=== PATIENT | female | born 1945 | race Caucasian/White ===

== ENCOUNTER 2019-09-01 02:50 | Emergency (ER) | payer MEDICARE, BC ==
[~2019-09-01] VITALS: Ht 157.5 cm; Wt 87.3 kg
[~2019-09-01 02:50] MED LIST: ATIVAN0.5 MG PO; CLARITIN 10 MG10 MG PO; HYDROCHLOROTH12.5 M1 PO; HYDROCODONE-APA1 TAB PO; LIVALO2 MG PO; MILK OF MAGNESI30 ML PO; MIRALAX17 GM PO; MIRAPEX1 MG PO; PRILOSEC20 MG PO; SYNTHROID88 MCG PO; TRILEPTAL150 MG PO; TYLENOL PM1 TAB PO
[2019-09-01 02:55] VITALS: Ht 157.5 cm; Wt 87.3 kg
[2019-09-01] MEDS ORDERED: CETIRIZINE HCL5 MG PO (02:57)
[2019-09-01] MEDS ORDERED: CRESTOR5 MG PO (02:57)
[2019-09-01 03:30] LABS: BASOPHILS 0.6 % (0-2); EOSINOPHILS 3.6 % (0-7); HEMATOCRIT 37.2 % (36.0-48.0); HEMOGLOBIN 12.4 g/dL (12-16); IMMATURE GRANULOCYTES 0.6 % (0-5); LYMPHOCYTES 25.4 % (15-50); MCH 29.5 pg (26.0-34.0); MCHC 33.3 g/dL (31.0-37.0); MCV 88.4 fL (80.0-100.0); MEAN PLATELET VOLUME 9.8 fL (7.4-10.4); MONOCYTES 7.8 % (2-11); PLATELET COUNT 217 10x3/uL (130-400); RBC 4.21 10x6/uL (4.00-5.40); RDW 12.7 % (11.5-14.5); WBC 6.7 10x3/uL (4.8-10.8)
[2019-09-01 03:41] LABS: APPEARANCE CLEAR (CLEAR); BILIRUBIN NEGATIVE (NEGATIVE); COLOR YELLOW (YELLOW); GLUCOSE NEGATIVE (NEGATIVE); KETONE NEGATIVE (NEGATIVE); NITRITE NEGATIVE (NEGATIVE); PROTEIN NEGATIVE (NEGATIVE); UROBILINOGEN NORMAL (NORMAL)
[2019-09-01 03:42] LABS: ALBUMIN 3.4 g/dL (3.4-5.0); ALKALINE PHOSPHATASE 61 U/L (46-116); ALT (SGPT) 27 U/L (10-68); BILIRUBIN - TOTAL 0.41 mg/dL (0.2-1.3); CALC OSMOLALITY 281 mosm/kg (275-300); CALCIUM 8.8 mg/dL (8.5-10.1); CARBON DIOXIDE 29.8 mmol/L (21.0-32.0); CHLORIDE - SERUM 105 mmol/L (98-107); CREATININE - SERUM 0.9 mg/dL (0.6-1.3); GLUCOSE 114 mg/dL (74-106); POTASSIUM - SERUM 4.1 mmol/L (3.5-5.1); SODIUM 141 mmol/L (136-145); UREA NITROGEN 13 mg/dL (7-18); eGFR NON AFRICAN AMERICAN 65 mL/min (90-120)
[2019-09-01 03:43] LABS: BACTERIA FEW /hpf (NEGATIVE); EPITHELIAL CELLS 0-5 /hpf (0-5); RED CELLS - URINE 0-5 /hpf (0-5); WHITE CELLS - URINE 0-5 /hpf (NEGATIVE)
[2019-09-01 03:46] LABS: AMYLASE - SERUM 32 U/L (25-115); LIPASE 77 U/L (73-393)
[2019-09-01 03:52] LABS: TROPONIN-I < 0.017 ng/mL (0.000-0.060)
[2019-09-01] MEDS ORDERED: NAPROSYN500 MG PO (04:07)
[2019-09-01] MEDS ORDERED: ULTRAM50 MG PO (04:07)
[2019-09-01 04:43] VITALS: BP 132/55
== END 2019-09-01 04:43 | disposition home or self-care (01) ==
LOC: D.ER 02:50
PROVIDERS: Family Medicine
DX: N20.0 Calculus of kidney (principal)